=== PATIENT | male | born 1935 | race Caucasian/White ===

== ENCOUNTER 2018-11-04 09:58 | Inpatient (IN) | payer OTHER, SELFPAY ==
[2018-11-02 12:06] VITALS: BMI 25.8
[2018-11-04] VITALS (17 sets, daily range): BP systolic 121–176; BP diastolic 68–100; PULSE 78–113; RESP 8–17; TEMP 35.8–36.9; O2SAT 94–98; BMI 24.5
--- NOTE | 2018-11-04 | DI.RAD.S_ITS ---
PROCEDURE: XR LUMBAR SPINE 2-3V INDICATIONS: L5-S1 TLIF TECHNIQUE: 3 views of the lumbar spine were acquired. COMPARISON: None. FINDINGS: Bones: The initial image shows a metallic probe superimposed on the posterior elements of L5, and the subsequent 2 images show frontal and lateral projections of the postoperative status of placement of transverse pedicle screws and vertical fixation rods with the interbody disc prosthesis, cage type, crossing L5-S1. Soft tissues: Overlying bowel gas pattern is normal. No suspicious soft tissue calcifications. IMPRESSION: Normal alignment established, L5-S1 posterior fusion with interbody disc cage prosthesis. Dictated by: Js Cook M.D. on 11/04/2018 at 15:55 Approved by: Js Cook M.D. on 11/04/2018 at 15:57
[2018-11-04] MEDS: LACTATED RINGERS 1,000 ML 42 ML IV ×2 (10:47→14:25)
--- NOTE | 2018-11-04 11:41 | PM.PREOP ---
Pre-operative Note Interval Note History & Physical reviewed/Exam performed by Physician: Yes Changes to H&P: No
[2018-11-04] MEDS: CEFAZOLIN 2 GM/100 ML FROZ.PIGGY IV ×2 (12:13→20:36)
[2018-11-04] MEDS: ACETAMINOPHEN IV 1,000 MG/100 ML VIAL 400 MG IV (12:30)
[2018-11-04] MEDS: BUPIVACAINE LIPOSOME 266 MG/20 ML VIAL INJ (13:23)
[2018-11-04] MEDS: BUPIVACAINE 0.25% W/ EPI 30 ML VIAL INJ (13:23)
--- NOTE | 2018-11-04 13:26 | SUR.OPER ---
Prone on spine table, head in foam head support, padded chest and pelvic supports, gel pad at knees, lower legs supported by pillows; nipples, genitalia and toes free of pressure, arms secured on foam padded arm boards at <90 degrees abduction. Tape over blanket at thigh secured to table.
--- NOTE | 2018-11-04 15:22 | PM.OP.1 ---
Operative Date/Time/Diagnoses Date of procedure: 11/04/18 Time of procedure: 12:22 Pre-op diagnosis: 1. L4-5, L5-S1 spinal stenosis 2. Lumbar spondylosis with radiculopathy Post-op diagnosis: same Procedure & Clinicians Procedure: 1. L5-S1 Postero-lateral and posterior interbody fusion 2. L5-S1 interbody cage placement. 3. L5-S1 decompressive laminectomy with bilateral facetecomies 4. L5-S1 Posterior non-segmental instrumentation 5. L4-5 hemilaminectomy 6. [place] of bone marrow from iliac crest 7. Utilization of microsurgical technique and operating microscope Same procedure as scheduled: Yes Indications: Patient has been having chronic back pain and worsening lumbar radiculopathy. Patient failed multiple conservative management with worsening pain weakness and numbness in her lower extremity. Patient has been having difficulty performing activity of daily living. After discussing risks benefits of treatment options, patient elected proceed with surgery. Surgeon: Colton Mandujano Strategic Intelligence Officer: Regla Vines Click Yes if Unassisted: No Anesthesia Type: General Operative Notes Closure Type: primary Specimen(s): none sent Prosthetic devices, grafts, tissues, transplants, or devices: Globus revolve screws, Rise cage Estimated Blood Loss (mL): 50 Blood products transfused: none Procedure in detail: Patient was seen in the preoperative area. Risks and benefits of the surgery was discussed with the patient. Informed consent was obtained from the patient and placed in the chart. Surgical site was marked. Patient was taken to the operative room. General anesthesia was administered. Prophylactic antibiotic was given to the patient less than 30 min before the incision was made. Patient was placed into a prone position on the Bhavik table. Patient's back was then prepped and draped in the sterile fashion. Time-out was performed at this time. Using AP and lateral C-arm imaging the interval between L5-S1 was identified and marked on patient's back. A 2 inch incision 2 in from midline was made on the left side first. The fascia was incised in line with skin incision. Globus MARS retractors was placed inside the incision and docked onto the L5 lamina. Using microsurgical technique and operating microscope, a L5 laminectomy and L5-S1 facetectomy was performed using a Kerrison rongeur. The disc space at L5-S1 was identified. And a total diskectomy was performed at L5-S1 level. The endplates were decorticated using a rasp and shaver. The total diskectomy and decortication was performed at L5-S1 level in order to to accomplish a L5-S1 fusion. The local bone from the laminectomy and facetectomy was saved for local bone grafting. After the total diskectomy and decortication was completed, Bio4 bone graft material was combined with local bone that was harvested earlier. At this time, a separate skin is incision was made over the iliac crest. A Jamshidi needle was inserted into the iliac crest through a separate skin incision. 5 cc of bone marrow aspiration was obtained through the separate skin incision using a Jamshidi needle from the iliac crest. The bone marrow aspiration was combined with local bone and the Bio4 bone grafting material. The bone grafting material was placed into the L5-S1 interbody space along with a expandable cage. The cage was expanded to its maximum height using the torque limiting screwdriver. During the process of laminectomy and decompression, there was a large facet cyst that was identified that was intimately adherent to the thecal sac. This made the approach to the neurologic structure and that this space difficult. A separate incision was made over the L4-5 disc space just lateral to the midline on the left side. A globus mars retractor was inserted and docked onto the L4 lamina and aimed caudally towards the migrated disc fragment. A hemilaminectomy was performed using the microscope and microsurgical technique. The thecal sac was retracted medially and residual disc fragments that was migrated cephalad from the L5-S1 disc herniation was identified and removed during this approach. The thecal sac and nerve roots were fully decompressed after the hemilaminectomy and microdiskectomy was completed at the L4-5 level. At this time a mirror image incision was made on the right side. The fascia was incised in line with the skin incision. Globus MARS retractor was inserted and docked onto the L5-S1 posterolateral gutter. Using the power drill, posterior-lateral decortication was performed at L5-S1 level until bleeding cortical bone was identified. The remaining bone grafting material was placed into the L5-S1 posterior lateral gutter he order to accomplish posterolateral fusion at the L5-S1 level. Using the double C-arm technique, pedicle screws were placed into the L5-S1 pedicles bilaterally. This was done by placing the Jamshidi needle into the pedicles, then placing the guidewires over the Jamshidi needle, and finally placing the cannulated screws over the guidewires bilaterally. After the pedicle screws were placed, 2 titanium rods was locked into the heads of the pedicle screws using locking caps and torque limiting screwdriver. After all the hardware was placed, and confirmed with AP and lateral C-arm imaging, the wound was then irrigated with sterile normal saline and packed with Ray-Angel gauze for 3 min to accomplish hemostasis. After the gauze was removed the deep fascia was closed with #1 Vicryl suture. The subcutaneous layer was closed with 2-0 Vicryl. The skin was closed with skin lazaro. Patient tolerated the procedure well. There were no complications. Complications: none Condition: stable Disposition: PACU Plan for aftercare: Admit to inpatient hospital
[2018-11-04] MEDS: fentaNYL 100 MCG/2 ML INJ 50 MCG IV ×2 (15:54→16:07)
[2018-11-04] MEDS: HYDROMORPHONE 2 MG INJ 0.25 MG IV (15:55)
--- NOTE | 2018-11-04 16:04 | SUR.PHASEI ---
To PACU sleeping, resp unlabored, snoring, skin warm and dry. 1543 Arousing spontaneously but does not respond to questions. Dr.. Montez spoke to patient. 1551 pt. responsive to voice, appropriate. Denies pain/nausea. 1554 C/o pain, rx given. report to Makayla Cook Rn
--- NOTE | 2018-11-04 16:10 | SUR.PHASEI ---
Care turned over to Makayla Cook RN
--- NOTE | 2018-11-04 16:12 | SUR.PHASEI ---
recieved report from April MARX
[2018-11-04] MEDS: OXYCODONE IR 5 MG TABLET PO ×2 (16:34→21:46)
[2018-11-04] MEDS: SODIUM CHLORIDE 0.9% 1,000 ML 100 ML IV (17:16)
[2018-11-04] MEDS: ACETAMINOPHEN 325 MG TABLET 650 MG PO (17:30)
[2018-11-04] MEDS: DOCUSATE 100 MG CAPSULE PO (21:03)
[2018-11-04] MEDS: PRAVASTATIN 20 MG TABLET 40 MG PO (21:03)
[2018-11-04] MEDS: SENNOSIDES 8.6 MG TABLET 17.2 MG PO (21:03)
[2018-11-04] MEDS: ONDANSETRON 4 MG/2 ML INJ IV (21:40)
--- NOTE | 2018-11-04 22:46 | PC.NURSE ---
Addendum entered by Fernanda Moss R.N. 11/04/18 23:26: encouraged pt to sit on side of the bed, but pt refused. Original Note: pt comfortable in bed. heart rate around low 100's. pt had some emesis 100cc, gave zofran per orders. pt's pain controlled with 5mg of oxycodone and tylenol. at bedside. call light in reach. bed alarm active.
[2018-11-05] VITALS (7 sets, daily range): BP systolic 129–158; BP diastolic 70–83; PULSE 85–99; RESP 16–18; TEMP 36.8–37.5; O2SAT 94–96
[2018-11-05] MEDS: ACETAMINOPHEN 325 MG TABLET 650 MG PO ×3 (01:35→20:05)
[2018-11-05] MEDS: SODIUM CHLORIDE 0.9% 1,000 ML 100 ML IV (03:53)
[2018-11-05] MEDS: CEFAZOLIN 2 GM/100 ML FROZ.PIGGY IV (03:56)
[2018-11-05] MEDS: ONDANSETRON 4 MG/2 ML INJ IV (04:38)
--- NOTE | 2018-11-05 05:23 | PC.NURSE ---
NOC Shift: Pt. POD 1 TLIF, AOx3 refused to change position throughout shift due to fear of pain and nausea. Pt late arrival to floor post op was not evaled by PT yet, pt wants to wait to be OOB with physical therapy. Did allow RN to visualize dsg, CDI. Wants to be left in the sitting position in bed, have discussed w/pt and spouse the importance of activity etc. pt still does not want to move or dangle at bedside. Also refused to wear foot SCD's because they keep him awake. At hourly checks pt performs foot waves as directed per RN. VSS, sats stable on room air. IVF's continue pt not taking enough po fluids this AM. Has had several episodes of nausea and pt fears eating at this time. Using urinal in bed. at bedside for comfort. Pt only wants Tylenol for pain. Labs stable this AM.
[2018-11-05 05:33] LABS: Hematocrit 35.8 % (41-53); Hemoglobin 11.9 g/dL (13.5-17.5)
[2018-11-05] MEDS: PANTOPRAZOLE 40 MG TABLET PO (06:06)
[2018-11-05] MEDS: OXYCODONE IR 5 MG TABLET PO (09:00)
[2018-11-05] MEDS: LORATADINE 10 MG TABLET PO (09:01)
[2018-11-05] MEDS: DOCUSATE 100 MG CAPSULE PO ×2 (09:01→20:05)
[2018-11-05] MEDS: LOSARTAN 25 MG TABLET PO (09:01)
--- NOTE | 2018-11-05 09:15 | PT.IIE ---
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) Surgery Performed Operation Date: 11/04/18 11:45 Actual Procedures p L5-S1 TLIF w/instrumentation - Colton Mandujano MD Surgical History (Last Updated 11/02/18 @ 12:21 by Bushra Millan RN) Hx of hernia repair (Acute) Hx of knee surgery (Acute) Hx of prostatectomy (Acute ~2002) Hx of tonsillectomy (Acute) Status post right unicompartmental knee replacement (Acute) Medical History (Last Updated 11/02/18 @ 12:21 by Bushra Millan RN) Constipation (Acute) Edema (Acute) Foot drop, bilateral (Acute) GERD (gastroesophageal reflux disease) (Acute) HLD (hyperlipidemia) (Acute) HTN (hypertension) (Acute) Macular degeneration of both eyes (Acute) Pneumonia (Acute) Prostate cancer (Acute ~1999) Sciatica (Acute) Skin cancer (Acute) Physical Therapy Inpatient Evaluation/Re-Eval M1 PT/OT-IP Prior Functional Status Start: 11/05/18 08:41 Freq: NEEDED Status: Active Protocol: Document 11/05/18 11:54 PJM (Rec: 11/05/18 12:20 PJM [id number]) Medical Review Prior Functional Status Medical History Reviewed Yes Diet/Fluid Consistency Regular Communication WNL Mobility and Gait Pt has been using B walking sticks at home. He has 4WW from previous knee surgery. Activities of Daily Living and IADL's Pt states he has been independent with self care but has been helping with IADLS due to pt's low back pain. Both drive. Social History Household Members spouse Living Arrangements House Number of Floors (Floors) One Floor Number of Stairs To Enter/Railing? 3 with one rail Home Environment Standard Height Toilet Walk in Shower Home Equipment Four Wheel Walker Employment Status Retired Additional Social History Comment pt has no bathroom safety equipment at home M1 PT/OT-IP Prior Functional Status Start: 11/05/18 12:38 Freq: NEEDED Status: Active Protocol: Document 11/05/18 09:15 AB (Rec: 11/05/18 12:59 AB [id number]) Medical Review Prior Functional Status Medical History Reviewed Yes Diet/Fluid Consistency Regular Communication able to make needs known Mobility and Gait pt stated that he is independent with all mobilities and ambulation without AD but occasionally uses his walking sticks for outdoor mobility Activities of Daily Living and IADL's Per OT's note: Pt states he has been independent with self care but has been helping with IADLS due to pt's low back pain. Both drive. Social History Household Members spouse Living Arrangements House Number of Floors (Floors) One Floor Number of Stairs To Enter/Railing? 3 steps with L rail ascending Home Environment Standard Height Toilet Walk in Shower Built-In Shower Seat Home Equipment Four Wheel Walker Sock Aid Grab Bars In Shower Employment Status Retired M2 PT-IP Current Condition Start: 11/05/18 12:38 Freq: NEEDED Status: Active Protocol: Document 11/05/18 09:15 AB (Rec: 11/05/18 12:59 AB [id number]) Physical Therapy Current Condition Current Condition Evaluation Date 11/05/18 Treatment Diagnosis s/p L5-S1 fusion/lami; difficulty in walking Onset Date 11/04/18 Precautions Lumbar Precautions Log Roll No Twisting Limit Bending Lifting Restriction of 10 lbs Gait Belt above Incisional Area M3 PT-IP Subjective Start: 11/05/18 12:38 Freq: NEEDED Status: Active Protocol: Document 11/05/18 09:15 AB (Rec: 11/05/18 12:59 AB [id number]) Subjective Physical Therapy Visit Type Type Initial Evaluation Visit Start Time 09:15 Visit Stop Time 10:19 Total Visit Minutes 64 Number of COLOR CARD MAKER Visits 0 Physical Therapy Visit Comments Patient Comments pt agreeable to do PT Patient Goals to go home Therapy Pain Assessment Pain When Pain Assessed At Rest Pain Present Pain Present Pain Reported Location Lower Back Intensity 3 Scale Used increases to 5/10 with mobility Pain Management Techniques Apply Cold Re-positioning Timing of Activity with Medications M4 PT-IP Mobility and Gait Start: 11/05/18 12:38 Freq: NEEDED Status: Active Protocol: Document 11/05/18 09:15 AB (Rec: 11/05/18 12:59 AB [id number]) PT-Bed Mobility Assessment Rolling Type of Rolling Log Rolling Level of Assist Standby Assistance Supine to Sit Supine to Sit Minimal Assistance Scooting Scooting to Edge of Bed Standby Assistance PT-Transfer Assessment Sit to and From Stand Sit to and from Stand Moderate Assistance 1 Person Assistance Use of Upper Extremities Equipment Transfer Assistive Device Gait Belt Front Wheeled Walker Orthotic/Prosthetic Devices or Brace: No Transfers Transfer Destination Chair Transfer Technique pt ambulated using FWW Transfer Ability Level of Assist Minimal Assistance 1 Person Assistance Use of Upper Extremities Comments Mobility Comments BP supine: 151/82.pt completed bed mobility supine to sit min A and cues for log roll technique. pt completed x 2 reps and only required SBA and cues for 2nd rep. pt was able to sit on EOB SBA. BP: 170/ 84. pt completed sit <>stand initially requiring mod A and max cues. completed 2 more time and only required CGA but continues to require cues for techniques and to maintain back precautions. pt c/o dizziness with standing and initially does not want to walk. BP 159/77. Asked assistance from NAC for safety . pt completed ambulation towards the chair using FWW min A and cues. pt refused further ambulation. positioned pt on chair. call light and table placed within reach. ice pack provided. left pt with spouse in room. Gait Assessment Gait Gait Assistance Required: Minimum Assistance Distance (Feet) 12 Able to Maintain Weight Bearing Status Yes During Gait Assistive Devices Assistive Device Gait Belt Front Wheeled Walker Orthotic/Prosthetic Devices or Brace: No Gait Deviations General Gait Pattern Antalgic Decreased Stride Length Decreased Feet Clearance Lateral Trunk Lean Factors Limiting Gait Function Factors Limiting Gait Function Decreased Activity Tolerance Decreased Strength Limited Range of Motion Pain Poor Balance Poor Safety Awareness PT-Balance Assessment Sitting Balance and Reactions Static Sitting Balance Ability Good Dynamic Sitting Balance Ability Good Standing Balance and Reactions Static Standing Balance Ability Fair Dynamic Standing Balance Ability Fair Device Used FWW M5 PT-IP Objective Assessments Start: 11/05/18 12:38 Freq: NEEDED Status: Active Protocol: Document 11/05/18 09:15 AB (Rec: 11/05/18 12:59 AB [id number]) Orientation Orientation/Cognition Level of Alertness Alert Orientation Name Place Situation Language Function Ability Hard of Hearing Safety Awareness Decreased Safety Awareness Memory Description Short Term Impaired Gross Range of Motion Lower Extremity ROM Assessment Within Functional Limits Strength Lower Extremity Strength Assessment Bilaterally Impaired Comments Strength Comments LLE: 3+/5 RLE: 4-/5 Coordination Assessment Gross Coordination Gross Coordination WNL Sensation Assessment Sensation Gross Sensation WNL Muscle Tone Muscle Tone WNL Yes M6 PT-IP Treatment Start: 11/05/18 12:38 Freq: NEEDED Status: Active Protocol: Document 11/05/18 09:15 AB (Rec: 11/05/18 12:59 AB [id number]) Physical Therapy Treatment Education Education Provided Precautions Weight Bearing Status Post-Op Packet Safety Other Treatments Other Treatment Performed initiated caregiver training with pt and pt's spouse. pt's spouse was able to cue pt with bed mobility. M7 PT-IP Assessment and Plan Start: 11/05/18 12:38 Freq: NEEDED Status: Active Protocol: Document 11/05/18 09:15 AB (Rec: 11/05/18 12:59 AB [id number]) PT Summary Assessment and Plan Potential Rehabilitation Potential Good Status of Condition at Evaluation Evolving Summary Impairments Pain ROM Strength Balance Coordination Sensation Tone Cognition Bed Mobility Transfers Gait Activity Tolerance Assessment Summary pt requiring min to mod A with mobility and will likely improve during hospital stay. will conduct caregiver training when appropriate and also complete stair training prior to d/c. informed pt's spouse on equipement needs. Goals Bed Mobility Goal Standby Assistance Transfer Goal Standby Assistance Front Wheeled Walker Four Wheeled Walker Gait Goal Standby Assistance Front Wheel Walker Four Wheel Walker Gait Distance 200 Other Goals up/down 3 steps L rail ascending SBA Days to Meet Goals 5 Frequency of Treatment Frequency Of Treatment Twice a Day Treatment Plan Physical Therapy Treatment Plan Bed Mobility Training Transfer Training Gait Training Therapeutic Exercise Balance Retraining Post Op Education Discharge Planning Hot or Cold Pack Neuromuscular Re-ed Coordination Retraining Manual Therapy Other Recommendations and Next Treatment ambulation, bed mobility, Focus caregiver training Recommendations To Nursing Amount of Assist Needed 1 Person Assist Discharge Recommendations PT Discharge Recommendations Home with Assistance Equipment Needed for Home Before FWW Discharge
--- NOTE | 2018-11-05 09:17 | PM.PNPO.1 ---
Subjective Date Patient Seen: 11/05/18 Time Patient Seen: 09:17 Interval history: Patient's pain is moderate. Denies fever chills. No nausea vomiting. Has not yet worked with physical therapy. Otherwise without complaints. Exam Vital Signs (past 8 hours): - 11/05/18 04:02 11/05/18 07:00 11/05/18 09:01 Temperature 98.2 F 98.4 F Pulse Rate 94 H 99 H Respiratory Rate 16 16 Blood Pressure 138/76 145/79 H 145/79 H Pulse Oximetry 96 94 Oxygen Delivery Method Room Air Oxygen Flow Rate 2 Narrative Exam Narrative: 83-year-old male resting comfortably in bed in no apparent distress. Motor function is intact bilateral lower extremities. Sensation grossly intact to light touch. Both legs are warm and dry. Scant drainage noted on dressing otherwise intact. Objective Labs Result Diagrams: 11/05/18 05:15 Labs: Laboratory Results - last 24 hr 11/05/18 05:15 Hgb 11.9 L Hct 35.8 L Assessment & Plan Post-op Postoperative Procedures Operation Date: 11/04/18 11:45 Actual Procedures Side Surgeon p L5-S1 TLIF w/instrumentation Colton Mandujano MD Postop day 1. Mobilize with physical therapy. Likely discharge home in 1-2 days. Quality VTE Deep Vein Thrombosis/Pulmonary Embolism Present on Admission: No
--- NOTE | 2018-11-05 11:54 | OT.IP.EVAL ---
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) Surgery Performed Operation Date: 11/04/18 11:45 Actual Procedures p L5-S1 TLIF w/instrumentation - Colton Mandujano MD Past Medical History (Last Updated 11/02/18 @ 12:21 by Bushra Millan, RN) Constipation (Acute) Edema (Acute) Foot drop, bilateral (Acute) GERD (gastroesophageal reflux disease) (Acute) HLD (hyperlipidemia) (Acute) HTN (hypertension) (Acute) Macular degeneration of both eyes (Acute) Pneumonia (Acute) Prostate cancer (Acute ~1999) Sciatica (Acute) Skin cancer (Acute) Surgical History (Last Updated 11/02/18 @ 12:21 by Bushra Millan RN) Hx of hernia repair (Acute) Hx of knee surgery (Acute) Hx of prostatectomy (Acute ~2002) Hx of tonsillectomy (Acute) Status post right unicompartmental knee replacement (Acute) Occupational Therapy Inpatient Evaluation/Re-Eval M1 PT/OT-IP Prior Functional Status Start: 11/05/18 08:41 Freq: NEEDED Status: Active Protocol: Document 11/05/18 11:54 PJM (Rec: 11/05/18 12:20 PJM [email or web address]) Medical Review Prior Functional Status Medical History Reviewed Yes Diet/Fluid Consistency Regular Communication WNL Mobility and Gait Pt has been using B walking sticks at home. He has 4WW from previous knee surgery. Activities of Daily Living and IADL's Pt states he has been independent with self care but has been helping with IADLS due to pt's low back pain. Both drive. Social History Household Members spouse Living Arrangements House Number of Floors (Floors) One Floor Number of Stairs To Enter/Railing? 3 with one rail Home Environment Standard Height Toilet Walk in Shower Home Equipment Four Wheel Walker Employment Status Retired Additional Social History Comment pt has no bathroom safety equipment at home M2 OT-IP Current Condition Start: 11/05/18 08:41 Freq: Status: Active Protocol: Document 11/05/18 11:54 PJM (Rec: 11/05/18 12:20 PJM [email or web address]) Occupational Therapy Current Condition Current Condition Evaluation Date 11/05/18 Treatment Diagnosis decreased self care, mobility S/P L5-S1 TLIF Diagnosis Onset Date 11/04/18 Post Operative Precautions Lumbar Precautions Log Roll No Twisting Limit Bending Lifting Restriction of 10 lbs Gait Belt above Incisional Area M3 OT- IP Subjective and Pain Start: 11/05/18 08:41 Freq: Status: Active Protocol: Document 11/05/18 11:54 PJM (Rec: 11/05/18 12:20 PJM [email or web address]) OT- Subjective Occupational Therapy Visit Type Type Initial Evaluation Visit Start Time 11:05 Visit Stop Time 11:54 Total Visit Minutes 49 Notes Pt's here for education this session. Occupational Therapy Visit Comments Patient Comments I don't think I can go home today. Getting out of bed was harder than I thought. Patient/Caregiver Goals to go home tomorrow, be able to golf OT Pain Assessment Pain When Pain Assessed At Rest Pain Present Pain Present Pain Reported Location Lower Back Intensity 2 Description Aching Acute Pain Behaviors Guarding M4 OT- IP ADL's Start: 11/05/18 08:41 Freq: Status: Active Protocol: Document 11/05/18 11:54 PJM (Rec: 11/05/18 12:20 PJM [email or web address]) OT [id number] General Evaluation Self-Feeding Ability Independent OT ADL-Grooming General Evaluation Grooming Ability Standby Assistance Comments OT Grooming Comments after set up in chair OT ADL-Oral Care General Eval Oral Care Ability Standby Assistance Areas of Assistance Brushing Teeth Comments Oral Care Comments after set up in chair OT ADL-Dressing General Eval Upper Body Dressing Ability Standby Assistance Lower Body Dressing Ability Maximum Assistance Assistive Devices Dressing Assistive Devices Long Handled Shoe Horn Craft Manager Sock Aid Comments OT Dressing Comments Began education re: lower body dressing training with backend tester, sock aid, long shoe horn. Pt will need further practice with new equipment. OT ADL-Toileting Comments OT Toileting Comments to be assessed, pt declined any need this session. Provided education re: equipt options for raising height of toilet at home. plans to obtain BSC for use over toilet . OT ADL-Bathing Bathing Type Bathing Type Shower Devices Bathing Equipment Long Handled Sponge or [place] Comments OT Bathing Comments Provided education re: shower seat options/resources; provided long bath sponge. Pt would like to shower here tomorrow prior to d/c. plans to obtain shower seat with armrest for pt. Recommend grab bar installation. M5 OT- IP IADL's Start: 11/05/18 08:41 Freq: Status: Active Protocol: Document 11/05/18 11:54 PJM (Rec: 11/05/18 12:20 PJM [email or web address]) OT-Instrumental Activities of Daily Living Deficits IADL Deficits Identified Deficits Home Safety Awareness Awareness of Need for Assistance at Home Good Awareness Ability to Problem Solve Emergency Able to Problem Solve Situations Medication Management Medication Management No Deficits Identified Money Management Money Management No Deficits Identified Meal Preparation Meal Preparation Caregiver Provides Assist Meal Preparation Comments to assist PRN Fractionation Plant Supervisor Fractionation Plant Supervisor Caregiver Provides Assist Fractionation Plant Supervisor Comments to assist PRN Driving Driving Caregiver Provides Assist Driving Comments to assist until pt able M6 OT- IP Functional Cognition Start: 11/05/18 08:41 Freq: Status: Active Protocol: Document 11/05/18 11:54 PJM (Rec: 11/05/18 12:20 PJM [email or web address]) Cognitive Factors Limiting Selfcare Function Cognitive Ability Level of Alertness Alert Patient Orientation Name Age Birthday Month Date Year Day of Week Place Situation Attention Span Ability Capable of Focused Attention Capable of Sustained Attention Ability to Follow Commands Able to Follow One Step Commands Cognitive Comments Cognitive Assessment Comments Pt alert and asking appropriate questions about adapted ADL techniques. OT- Vision and Hearing OT- Hearing Assessment OT- Hearing Assessment WFL OT- Vision Assessment Visual Acuity WFL M7 OT- IP Mobility and Balance Start: 11/05/18 08:41 Freq: Status: Active Protocol: Document 11/05/18 11:54 PJM (Rec: 11/05/18 12:20 PJM [email or web address]) OT-Transfer Assessment Comments Mobility Comments Pt seen up in recliner. See P. T. notes. OT- Gait Assessment Comments Gait Ability Comments see P.T. notes OT- Balance Assessment Comments Other Balance Tests/Deviations/Treatment see P.T. notes : M8 OT- IP Objective Assessments Start: 11/05/18 08:41 Freq: Status: Active Protocol: Document 11/05/18 11:54 PJM (Rec: 11/05/18 12:20 PJM [email or web address]) OT Gross Range of Motion Upper Extremity Range of Motion Assessment Within Functional Limits OT Strength Upper Extremity Strength Assessment Within Functional Limits Hand Manager Call Strength Hand Dominance Right OT- Coordination Assessment Comments Coordination Comments BUE WNL OT Sensation Assessment Comments Summary Comments BUE WNL per pt Edema Edema Absent M9 OT- IP Assessment and Plan Start: 11/05/18 08:41 Freq: Status: Active Protocol: Document 11/05/18 11:54 PJM (Rec: 11/05/18 12:20 PJM [email or web address]) OT Summary Assessment and Plan Potential Rehabilitation Potential Good Analytic Complexity at Evaluation Low Summary OT Impairments Pain Functional Mobility Grooming Dressing Toileting Bathing Toilet Transfers Shower Transfers Assessment Summary Low complexity OT assessment completed with emphasis on lumbar spine precautions on this 83 yr old male S/P L5-S1 TLIF. Began education with pt/ re: precautions, adapted ADL techniques, posture, optimal chair selection and equipment options/ resources for lower body dressing and bathroom safety. Pt currently has performance deficits in all functional mobility/ transfers, standing grooming, lower body dressing, bathing and toileting. Pt will benefit from 1 additional OT visits here to address the above goals. Pt plans to d/c home with 24 hr assist from supportive capable when medically stable and clears P.T. Goals Grooming Goal Independent Dressing Goal Independent Long Handled Shoe Horn Craft Manager Sock Aid Toileting Goal Independent Bathing Goal Standby Assistance Toilet Transfer Goal Independent Shower Transfer Goal Standby Assistance Walk-in Shower Patient/Caregiver Education Goal Demonstrate Post-Op Precautions Demonstrate Energy Conservation and Pacing Caregiver Independent Assisting Patient OT-Other Goals Grooming to be doen standing with good body mechanics. Days to Meet Goals 1 Frequency of Treatment Frequency Of Treatment Once a Day Treatment Plan OT Treatment Plan ADL Training Functional Mobility Patient/Family Education Discharge Planning Discharge Recommendations OT Discharge Recommendations Home with Assistance Home Equipment Needs shower seat, bedside commode over toilet, grab bars
--- NOTE | 2018-11-05 13:44 | PT.IPTN ---
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) Surgery Performed Operation Date: 11/04/18 11:45 Actual Procedures p L5-S1 TLIF w/instrumentation - Colton Mandujano MD Physical Therapy Treatment Note M2 PT-IP Current Condition Start: 11/05/18 12:38 Freq: NEEDED Status: Active Protocol: Document 11/05/18 09:15 AB (Rec: 11/05/18 12:59 AB [id number]) Physical Therapy Current Condition Current Condition Evaluation Date 11/05/18 Treatment Diagnosis s/p L5-S1 fusion/lami; difficulty in walking Onset Date 11/04/18 Precautions Lumbar Precautions Log Roll No Twisting Limit Bending Lifting Restriction of 10 lbs Gait Belt above Incisional Area M3 PT-IP Subjective Start: 11/05/18 12:38 Freq: NEEDED Status: Active Protocol: Document 11/05/18 13:41 GGD (Rec: 11/05/18 13:44 GGD [id number]) Subjective Physical Therapy Visit Type Type Treatment Note Visit Start Time 13:25 Visit Stop Time 13:40 Total Visit Minutes 15 Number of CASH APPLICATIONS CLERK Visits 1 Physical Therapy Visit Comments Patient Comments Pt would like to take a nap after PT. Therapy Pain Assessment Pain When Pain Assessed At Rest Pain Present Pain Present Pain Reported M4 PT-IP Mobility and Gait Start: 11/05/18 12:38 Freq: NEEDED Status: Active Protocol: Document 11/05/18 13:41 GGD (Rec: 11/05/18 13:44 GGD [id number]) PT-Bed Mobility Assessment Rolling Type of Rolling Log Rolling Level of Assist Standby Assistance Supine to Sit Supine to Sit Standby Assistance Bedrails Sit to Supine Sit to Supine Minimal Assistance Bedrails Scooting Scooting to Edge of Bed Standby Assistance PT-Transfer Assessment Sit to and From Stand Sit to and from Stand Contact Guard Assistance Use of Upper Extremities Equipment Transfer Assistive Device Gait Belt Front Wheeled Walker Orthotic/Prosthetic Devices or Brace: No Transfers Transfer Destination Bed Gait Assessment Gait Gait Assistance Required: Standby Assistance Contact Guard Assist Distance (Feet) 80 Able to Maintain Weight Bearing Status Yes During Gait Assistive Devices Assistive Device Gait Belt Front Wheeled Walker Orthotic/Prosthetic Devices or Brace: No Gait Deviations General Gait Pattern Antalgic Decreased Stride Length Decreased Feet Clearance Lateral Trunk Lean Factors Limiting Gait Function Factors Limiting Gait Function Decreased Activity Tolerance Decreased Strength Limited Range of Motion Pain Poor Balance Poor Safety Awareness M5 PT-IP Objective Assessments Start: 11/05/18 12:38 Freq: NEEDED Status: Active Protocol: Document 11/05/18 09:15 AB (Rec: 11/05/18 12:59 AB [id number]) Orientation Orientation/Cognition Level of Alertness Alert Orientation Name Place Situation Language Function Ability Hard of Hearing Safety Awareness Decreased Safety Awareness Memory Description Short Term Impaired Gross Range of Motion Lower Extremity ROM Assessment Within Functional Limits Strength Lower Extremity Strength Assessment Bilaterally Impaired Comments Strength Comments LLE: 3+/5 RLE: 4-/5 Coordination Assessment Gross Coordination Gross Coordination WNL Sensation Assessment Sensation Gross Sensation WNL Muscle Tone Muscle Tone WNL Yes M6 PT-IP Treatment Start: 11/05/18 12:38 Freq: NEEDED Status: Active Protocol: Document 11/05/18 09:15 AB (Rec: 11/05/18 12:59 AB [id number]) Physical Therapy Treatment Education Education Provided Precautions Weight Bearing Status Post-Op Packet Safety Other Treatments Other Treatment Performed initiated caregiver training with pt and pt's spouse. pt's spouse was able to cue pt with bed mobility. M7 PT-IP Assessment and Plan Start: 11/05/18 12:38 Freq: NEEDED Status: Active Protocol: Document 11/05/18 13:41 GGD (Rec: 11/05/18 13:44 GGD [id number]) PT Summary Assessment and Plan Summary Assessment Summary Pt improving with mobility. HE was able to progress gait distance. He needed min A with LE for bed mobility. Frequency of Treatment Frequency Of Treatment Twice a Day Treatment Plan Physical Therapy Treatment Plan Bed Mobility Training Transfer Training Gait Training Therapeutic Exercise Balance Retraining Post Op Education Discharge Planning Hot or Cold Pack Neuromuscular Re-ed Coordination Retraining Manual Therapy Other Recommendations and Next Treatment ambulation with 4WW vs FWW, Focus bed mobility, caregiver training, stair training Recommendations To Nursing Amount of Assist Needed 1 Person Assist Discharge Recommendations PT Discharge Recommendations Home with Assistance
--- NOTE | 2018-11-05 15:00 | CM.DANOTE ---
DCP: Case received, EMR reviewed and met with patient. , Aissatou, also in room at bedside. Introduced self and role. Was able to obtain baseline information from patient, as well as , regarding health history information. DCP assessment completed with information currently available. Patient is an 83 year old male who admitted yesterday morning to the care of the orthopedist team. PCP: Dr. Truong. Payer: confirmed: [facility]. Patient came to the hospital for a surgical procedure. He had L5-S1 postero-lateral and posterior interbody fusion. Patient has had chronic back pain with weakness in his legs. Met with patient. Pleasant. , Aissatou, was in the room as well. They both reside in [place]. Patient is independent at home, he does use a walking stick when he goes for his walks. He has been up already working with physical therapy, he stated that he started working with them last night. He thinks that he may be discharged home tomorrow. is working on getting him a walker for home use. P: DCP to continue to follow. Patient should be able to go home when he is medically stable and cleared with the physical therapy team. He will follow up with his orthopedist in approximately two weeks. Samra Nava RN/Livestock Buyer
[2018-11-05] MEDS: SENNOSIDES 8.6 MG TABLET 17.2 MG PO (20:05)
[2018-11-05] MEDS: PRAVASTATIN 20 MG TABLET 40 MG PO (20:05)
--- NOTE | 2018-11-05 22:24 | PC.NURSE ---
Briana shift note: Patient refused SCD's at 2224, Discussed importance of use, verbalized understanding. However, states he cannot sleep. Patient had SCD's in place from 1500 to 2224, moving in bed frequently.
[2018-11-06] MEDS: ACETAMINOPHEN 325 MG TABLET 650 MG PO ×2 (01:04→12:21)
--- NOTE | 2018-11-06 01:21 | PC.NURSE ---
Addendum entered by Kathy Aranda R.N. 11/06/18 06:19: States pain at rest is 0/10 and with movement now only 3/10; discussed pain management with patient since he is reluctant to use the narcotics. Went over importance of pain control to maximize movement in order to increase mobility and prevent complications; verbalizes understanding. Addendum entered by Kathy Aranda R.N. 11/06/18 04:59: States pain is still 7/10 with movement and 2/10 at rest so requesting the additional 5mg of Oxycodone; medicated as requested since order is that patient may have 10mg q3h. Addendum entered by Kathy Aranda R.N. 11/06/18 03:45: Patient states back pain is 8/10 with movement and 1/10 at rest. Hesitant to take narcotics so medicated with only 5mg Oxycodone but discussed that he can have additional 5mg if not improved in next hour; verbalizes understanding. Original Note: Patient is alert and oriented. Breath sounds CTA with RA sat of 94%. HRR with elevated BP of 158/83. Denies nausea. BT hypoactive and states he has passed only minimal flatus; abdomen is soft and non tender. Has chronic urgency/dribbling but denies dysuria or frequency. Is able to turn himself in bed. Dressing to back is intact with shadow drainage noted; no leakage. States pain is 5/10 but only wanting to take Tylenol; medicated as requested. Is out of bed with walker and 1 assist and states he is still feeling weak and unsteady on feet. CMS is intact. Refusing to wear SCD's despite discussion of prevention of DVT. Fall risk score is moderate; bed alarm is activated.
[2018-11-06 03:38] VITALS: BP 186/88; PULSE 91; RESP 18; TEMP 37.4; O2SAT 95
[2018-11-06] MEDS: OXYCODONE IR 5 MG TABLET PO ×2 (03:43→04:58)
[2018-11-06] MEDS: PANTOPRAZOLE 40 MG TABLET PO (06:13)
[2018-11-06 07:30] VITALS: BP 187/94; PULSE 82; RESP 18; TEMP 36.8; O2SAT 95
[2018-11-06 08:13] VITALS: BP 151/79
[2018-11-06] MEDS: DOCUSATE 100 MG CAPSULE PO (08:13)
[2018-11-06] MEDS: LORATADINE 10 MG TABLET PO (08:13)
[2018-11-06] MEDS: LOSARTAN 25 MG TABLET PO (08:13)
[2018-11-06] MEDS: OXYCODONE IR 5 MG TABLET 10 MG PO (08:13)
[2018-11-06] MEDS: SODIUM CHLORIDE 0.9% FLUSH 10 ML IV (08:14)
--- NOTE | 2018-11-06 08:48 | PM.DS.1 ---
History of Present Illness Date Patient Seen: 11/06/18 Time Patient Seen: 08:48 Chief complaint: [id number] Narrative: Patient has been having chronic back pain and worsening lumbar radiculopathy. Patient failed multiple conservative management with worsening pain weakness and numbness in her lower extremity. Patient has been having difficulty performing activity of daily living. After discussing risks benefits of treatment options, patient elected proceed with surgery. Discharge Providers Date of admission: 11/04/18 09:58 Discharge Date: 11/06/18 Primary care physician: Analy Truong Consults: 11/04/18 16:59 Consult to Occupational Therapy Evaluate & Treat Comment: Physician Instructions: Evaluate and treat Consult to Physical Therapy Evaluate & Treat Comment: Physician Instructions: Evaluate and Treat Discharge provider: Zita Webber PA-C Summary Discharge Diagnosis: s/p TLIF Hypertension Hyperlipidemia GERD Hospital Course: Jose Juan was admitted for L5-S1 TLIF with Dr. Mandujano. Hospital course was unremarkable. On postop day 2. Patient was ready to discharge home. He is eating and voiding without difficulty or assistance. He was mobilized with physical therapy throughout his stay. Cover site dressing change prior to discharge. Exam Vital Signs (past 8 hours): - 11/06/18 03:38 11/06/18 07:30 11/06/18 08:13 Temperature 99.4 F 98.3 F Pulse Rate 91 H 82 Respiratory Rate 18 18 Blood Pressure 186/88 H 187/94 H 151/79 H Pulse Oximetry 95 95 Oxygen Delivery Method Room Air Oxygen Flow Rate 0 Narrative Exam Narrative: Jose Juan is sitting in bedside chair in no acute distress. He is alert and oriented x3. Calves are soft, compressible, nontender bilaterally. Sensation intact to light touch of her lower extremities. Pulses are symmetrical. Pain well controlled. Objective Labs Result Diagrams: 11/05/18 05:15 Discharge Plan Discharge Plan Patient Disposition: Home Discharge Med Rec/Prescriptions Prescriptions: New docusate sodium [DOK] 100 mg Capsule 100 mg PO BID Qty: 60 RF: 0 oxycodone-acetaminophen [Percocet] 5-325 mg tablet 1 tab PO Q4-6H PRN (Reason: pain) Qty: 60 RF: 0 Continued cetirizine [Aller-Angel] 10 mg Tablet 10 mg PO DAILY RF: 0 pravastatin 40 mg Tablet 40 mg PO BEDTIME RF: 0 omeprazole 40 mg Capsule,Delayed Release(Dr/Ec) 40 mg PO DAILY RF: 0 losartan 25 mg Tablet 25 mg PO DAILY RF: 0 PreserVision AREDS [id number] Capsule 1 cap PO BID RF: 0 Vitamin D3 2,000 units 2,000 units DAILY RF: 0 Discontinued acetaminophen [Tylenol] 325 mg Capsule 650 mg PO Q6H RF: 0 Follow up/Referrals: Colton Mandujano MD [Physician] - Provider Discharge Instructions Activity: No excessive bending, lifting, or twisting. Cold/Heat Therapy: As needed Skin/Wound/Dressing Care Report to your healthcare provider any signs of infection, such as:: chills, fever and increased pain Dressing: Cover site dressing prior to discharge. Leave in place until appointment. Visit Report/Discharge Packet Instructions: DI for Transforaminal Lumbar Interbody Fusion Discharge Data Primary Care Provider: Analy Truong Attending Provider: Colton Mandujano Admit Date/Time: 11/04/18 09:58 Quality VTE Deep Vein Thrombosis/Pulmonary Embolism Present on Admission: No
--- NOTE | 2018-11-06 08:51 | P.DS_ITS ---
History of Present Illness Date Patient Seen: 11/06/18 Time Patient Seen: 08:48 Chief complaint: [id number] Narrative: Patient has been having chronic back pain and worsening lumbar radiculopathy. Patient failed multiple conservative management with worsening pain weakness and numbness in her lower extremity. Patient has been having difficulty performing activity of daily living. After discussing risks benefits of treatment options, patient elected proceed with surgery. Discharge Providers Date of admission: 11/04/18 09:58 Discharge Date: 11/06/18 Primary care physician: Analy Truong Consults: 11/04/18 16:59 Consult to Occupational Therapy Evaluate & Treat Comment: Physician Instructions: Evaluate and treat Consult to Physical Therapy Evaluate & Treat Comment: Physician Instructions: Evaluate and Treat Discharge provider: Zita Webber PA-C Summary Discharge Diagnosis: s/p TLIF Hypertension Hyperlipidemia GERD Hospital Course: Jose Juan was admitted for L5-S1 TLIF with Dr. Mandujano. Hospital course was unremarkable. On postop day 2. Patient was ready to discharge home. He is eating and voiding without difficulty or assistance. He was mobilized with physical therapy throughout his stay. Cover site dressing change prior to discharge. Exam Vital Signs (past 8 hours): - 11/06/18 03:38 11/06/18 07:30 11/06/18 08:13 Temperature 99.4 F 98.3 F Pulse Rate 91 H 82 Respiratory Rate 18 18 Blood Pressure 186/88 H 187/94 H 151/79 H Pulse Oximetry 95 95 Oxygen Delivery Method Room Air Oxygen Flow Rate 0 Narrative Exam Narrative: Jose Juan is sitting in bedside chair in no acute distress. He is alert and oriented x3. Calves are soft, compressible, nontender bilaterally. Sensation intact to light touch of her lower extremities. Pulses are symmetrical. Pain well controlled. Objective Labs Result Diagrams: 11/05/18 05:15 Discharge Plan Discharge Plan Patient Disposition: Home Discharge Med Rec/Prescriptions Prescriptions: New docusate sodium [DOK] 100 mg Capsule 100 mg PO BID Qty: 60 RF: 0 oxycodone-acetaminophen [Percocet] 5-325 mg tablet 1 tab PO Q4-6H PRN (Reason: pain) Qty: 60 RF: 0 Continued cetirizine [Aller-Angel] 10 mg Tablet 10 mg PO DAILY RF: 0 pravastatin 40 mg Tablet 40 mg PO BEDTIME RF: 0 omeprazole 40 mg Capsule,Delayed Release(Dr/Ec) 40 mg PO DAILY RF: 0 losartan 25 mg Tablet 25 mg PO DAILY RF: 0 PreserVision AREDS [id number] Capsule 1 cap PO BID RF: 0 Vitamin D3 2,000 units 2,000 units DAILY RF: 0 Discontinued acetaminophen [Tylenol] 325 mg Capsule 650 mg PO Q6H RF: 0 Follow up/Referrals: Colton Mandujano MD [Physician] - Provider Discharge Instructions Activity: No excessive bending, lifting, or twisting. Cold/Heat Therapy: As needed Skin/Wound/Dressing Care Report to your healthcare provider any signs of infection, such as:: chills, fever and increased pain Dressing: Cover site dressing prior to discharge. Leave in place until ap pointment. Visit Report/Discharge Packet Instructions: DI for Transforaminal Lumbar Interbody Fusion Discharge Data Primary Care Provider: Analy Truong Attending Provider: Colton Mandujano Admit Date/Time: 11/04/18 09:58 Quality VTE Deep Vein Thrombosis/Pulmonary Embolism Present on Admission: No
--- NOTE | 2018-11-06 09:26 | OT.IP.TRT ---
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) Surgery Performed Operation Date: 11/04/18 11:45 Actual Procedures p L5-S1 TLIF w/instrumentation - Colton Mandujano MD Occupational Therapy Treatment Note M2 OT-IP Current Condition Start: 11/05/18 08:41 Freq: Status: Active Protocol: Document 11/05/18 11:54 PJM (Rec: 11/05/18 12:20 PJM [id number]) Occupational Therapy Current Condition Current Condition Evaluation Date 11/05/18 Treatment Diagnosis decreased self care, mobility S/P L5-S1 TLIF Diagnosis Onset Date 11/04/18 Post Operative Precautions Lumbar Precautions Log Roll No Twisting Limit Bending Lifting Restriction of 10 lbs Gait Belt above Incisional Area M3 OT- IP Subjective and Pain Start: 11/05/18 08:41 Freq: Status: Active Protocol: Document 11/06/18 09:25 CCC (Rec: 11/06/18 09:26 CCC [id number]) OT- Subjective Occupational Therapy Visit Type Type Patient Refusal Notes Pt states feeling very nauseous and not wanting to do therapy at this time. To notify nursing and check on pt on in PM.
--- NOTE | 2018-11-06 11:05 | PT.IPTN ---
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) Surgery Performed Operation Date: 11/04/18 11:45 Actual Procedures p L5-S1 TLIF w/instrumentation - Colton Mandujano MD Physical Therapy Treatment Note M2 PT-IP Current Condition Start: 11/05/18 12:38 Freq: NEEDED Status: Active Protocol: Document 11/05/18 09:15 AB (Rec: 11/05/18 12:59 AB [id number]) Physical Therapy Current Condition Current Condition Evaluation Date 11/05/18 Treatment Diagnosis s/p L5-S1 fusion/lami; difficulty in walking Onset Date 11/04/18 Precautions Lumbar Precautions Log Roll No Twisting Limit Bending Lifting Restriction of 10 lbs Gait Belt above Incisional Area M3 PT-IP Subjective Start: 11/05/18 12:38 Freq: NEEDED Status: Active Protocol: Document 11/06/18 11:06 GGD (Rec: 11/06/18 11:56 GGD [id number]) Subjective Physical Therapy Visit Type Type Treatment Note Visit Start Time 10:32 Visit Stop Time 11:06 Total Visit Minutes 34 Number of SECOND GRADE TEACHER Visits 2 Physical Therapy Visit Comments Patient Comments Pt states he is willing to work with PT. Therapy Pain Assessment Pain When Pain Assessed At Rest Pain Present Pain Present Pain Reported M4 PT-IP Mobility and Gait Start: 11/05/18 12:38 Freq: NEEDED Status: Active Protocol: Document 11/06/18 11:06 GGD (Rec: 11/06/18 11:56 GGD [id number]) PT-Bed Mobility Assessment Rolling Type of Rolling Log Rolling Level of Assist Standby Assistance Supine to Sit Supine to Sit Standby Assistance Bedrails Sit to Supine Sit to Supine Contact Guard Assistance Bedrails Scooting Scooting to Edge of Bed Standby Assistance PT-Transfer Assessment Sit to and From Stand Sit to and from Stand Contact Guard Assistance Use of Upper Extremities Equipment Transfer Assistive Device Gait Belt Front Wheeled Walker Orthotic/Prosthetic Devices or Brace: No Transfers Transfer Destination Bed Chair Transfer Ability Level of Assist Standby Assistance Use of Upper Extremities Gait Assessment Gait Gait Assistance Required: Standby Assistance Contact Guard Assist Distance (Feet) 250 Able to Maintain Weight Bearing Status Yes During Gait Assistive Devices Assistive Device Gait Belt Front Wheeled Walker Orthotic/Prosthetic Devices or Brace: No Gait Deviations General Gait Pattern Antalgic Decreased Stride Length Decreased Feet Clearance Lateral Trunk Lean Factors Limiting Gait Function Factors Limiting Gait Function Decreased Activity Tolerance Decreased Strength Limited Range of Motion Pain Poor Balance Poor Safety Awareness Stair Climbing Assessment Evaluation Level of Assist On Stairs Contact Guard Assistance Devices Stair Climbing Assistive Devices Left Railing Technique/Endurance Stair Climbing Direction Ascend and Descend Stair Climbing Technique Step to Step Number of Steps Climbed 3 Stair Climbing Set # Repetitions (reps) 1 M5 PT-IP Objective Assessments Start: 11/05/18 12:38 Freq: NEEDED Status: Active Protocol: Document 11/05/18 09:15 AB (Rec: 11/05/18 12:59 AB [id number]) Orientation Orientation/Cognition Level of Alertness Alert Orientation Name Place Situation Language Function Ability Hard of Hearing Safety Awareness Decreased Safety Awareness Memory Description Short Term Impaired Gross Range of Motion Lower Extremity ROM Assessment Within Functional Limits Strength Lower Extremity Strength Assessment Bilaterally Impaired Comments Strength Comments LLE: 3+/5 RLE: 4-/5 Coordination Assessment Gross Coordination Gross Coordination WNL Sensation Assessment Sensation Gross Sensation WNL Muscle Tone Muscle Tone WNL Yes M6 PT-IP Treatment Start: 11/05/18 12:38 Freq: NEEDED Status: Active Protocol: Document 11/06/18 11:06 GGD (Rec: 11/06/18 11:56 GGD [id number]) Physical Therapy Treatment Education Education Provided Precautions M7 PT-IP Assessment and Plan Start: 11/05/18 12:38 Freq: NEEDED Status: Active Protocol: Document 11/06/18 11:06 GGD (Rec: 11/06/18 11:56 GGD [id number]) PT Summary Assessment and Plan Summary Assessment Summary Pt improving with mobility. He needed less assist with bed mobility. He was safe and stable with gait with FWW and stair mobility. Pt safe for home D/C when medically stable . Frequency of Treatment Frequency Of Treatment Twice a Day Treatment Plan Physical Therapy Treatment Plan Bed Mobility Training Transfer Training Gait Training Therapeutic Exercise Balance Retraining Post Op Education Discharge Planning Hot or Cold Pack Neuromuscular Re-ed Coordination Retraining Manual Therapy Recommendations To Nursing Amount of Assist Needed 1 Person Assist Discharge Recommendations PT Discharge Recommendations Home with Assistance
--- NOTE | 2018-11-06 11:50 | CM.DPC ---
DCP Discharge Home Per Ortho PA, pt medically stable to d/c home today with no identified barriers to discharge. Per PT, recommending safe d/c home with spouse assist and outpt PT. SW met bedside with pt and spouse and explained role and provided pt's Medicare Rights and they acknowledged understanding and pt signed his Medicare Message. Pt and spouse feeling comfortable with d/c home later today after pt has a shower and eats lunch before discharging home and they do not already have outpt PT set up but Ortho discussed no need for PT for at least a few weeks. Pt and spouse do not anticipate any SW needs at d/c and preference is to d/c home this afternoon. Plan: Patient to d/c home later today via spouse POV. No SW needs at this time. BUSTER Narvaez
--- NOTE | 2018-11-06 12:43 | PC.NURSE ---
Pt showered, dressed and is ready for his discharge home with Spouse Aissatou. Pt IV has been removed. Reivewed d/c information with Pt and Spouse-discussed d/c meds, time of last dose, s/s of infection, stroke education, and follow up. Reminded Pt to not bend, lift, or twist. Pt denies further questions. Pt out via w/c by ADMINISTRATIVE ACCOUNTANT to POV with Spouse and all belongings.
== END 2018-11-06 13:13 | disposition home or self-care (01) | DRG 455 ==
PROVIDERS: Admitting Provider Orthopaedic Surgery Orthopaedic Surgery of the Spine; PCP Internal Medicine; Visit Provider Orthopaedic Surgery Orthopaedic Surgery of the Spine
PROC: 0SG30AJ Fusion of Lumbosacral Joint with Interbody Fusion Device, Posterior Approach, Anterior Column, Open Approach (ICD-10-PCS; principal; 2018-11-04 11:45)
DX: M48.07 Spinal stenosis, lumbosacral region (principal); M48.061 Spinal stenosis, lumbar region without neurogenic claudication; M51.16 Intervertebral disc disorders with radiculopathy, lumbar region; M43.16 Spondylolisthesis, lumbar region; F32.9 Major depressive disorder, single episode, unspecified
CPT/HCPCS: 36415; 72100; 76000; 85014; 85018; 97116; 97162; 97165; 97530; 97535; C1776; C9290; J0131; J0330; J0690; J1100; J1170; J2405; J2704; J3010